=== PATIENT | male | born 1965 | race Caucasian/White ===

== ENCOUNTER 2018-11-14 19:58 | Inpatient (IN) | payer OTHER ==
[~2018-11-14] VITALS: Ht 165.1 cm; Wt 87.5 kg
[2018-11-14 20:07] VITALS: Ht 165.1 cm; Wt 87.5 kg
[2018-11-14 21:28] LABS: BASOPHIL % 0.9 % (0-2); PLATELET COUNT 224 x10^3mcL (130-400); RED CELL DISTRIBUTION WIDTH 13.3 % (11.5-14.5)
[2018-11-14 21:35] LABS: CALCIUM 8.7 mg/dL (8.5-10.1); CARBON DIOXIDE 27.1 mmol/L (21-32); CHLORIDE SERUM 103 mmol/L (98-107); CREATININE SERUM 0.9 mg/dL (0.7-1.3); GFR1 > 60 mL/min; GLUCOSE SERUM 133 mg/dL (74-106); POTASSIUM SERUM 3.7 mmol/L (3.5-5.1); SODIUM SERUM 139 mmol/L (136-145)
[2018-11-14 21:41] LABS: ALBUMIN 3.6 g/dL (3.4-5.0); ALKALINE PHOSPHATASE 116 U/L (46-116); ALT/SGPT 48 U/L (16-63); AST/SGOT 29 U/L (15-37); BILIRUBIN TOTAL 0.23 mg/dL (0.20-1.00); CHOLESTEROL 220 mg/dL (<200); CHOLESTEROL/HDL RATIO 6.1; HDL CHOLESTEROL 36 mg/dL (40-60); TOTAL PROTEIN, SERUM 7.5 g/dL (6.4-8.2); TRIGLYCERIDES 270 mg/dL (<150)
[2018-11-15 03:13] VITALS: BP 118/70
[2018-11-15 03:13] LABS: MAGNESIUM 2.1 mg/dL (1.8-2.4)
[2018-11-15 03:48] LABS: T3 TOTAL 1.31 ng/mL
[2018-11-15 07:33] LABS: CALCIUM 8.3 mg/dL (8.5-10.1); CARBON DIOXIDE 26.1 mmol/L (21-32); CHLORIDE SERUM 102 mmol/L (98-107); CREATININE SERUM 0.8 mg/dL (0.7-1.3); GFR1 > 60 mL/min; GLUCOSE SERUM 145 mg/dL (74-106); MAGNESIUM 2.2 mg/dL (1.8-2.4); PHOSPHOROUS 2.4 mg/dL (2.5-4.9); POTASSIUM SERUM 4.2 mmol/L (3.5-5.1); SODIUM SERUM 136 mmol/L (136-145)
[2018-11-15 07:47] LABS: BASOPHIL % 0.5 % (0-2); PLATELET COUNT 222 x10^3mcL (130-400); RED CELL DISTRIBUTION WIDTH 13.3 % (11.5-14.5)
[2018-11-15 07:49] VITALS: BP 123/90
[2018-11-15 07:56] LABS: FREE T4 0.93 ng/dL (0.76-1.46); T4(THYROXINE) 6.2 ug/dL (4.7-13.3)
[2018-11-15 12:24] VITALS: BP 121/73
[2018-11-15 16:25] VITALS: BP 121/66
[2018-11-15 16:29] LABS: microscopic required? NO
[2018-11-15 16:40] LABS: urine erythrocyte NEGATIVE (NEGATIVE)
[2018-11-15 16:54] LABS: AMPHETAMINE QUAL UR NONE DETECTED (See below)
[2018-11-15 20:49] VITALS: BP 107/71
[2018-11-16 05:27] VITALS: BP 135/84
[2018-11-16 07:21] LABS: BASOPHIL % 0.4 % (0-2); CARBON DIOXIDE 25.7 mmol/L (21-32); CHLORIDE SERUM 102 mmol/L (98-107); CREATININE SERUM 0.8 mg/dL (0.7-1.3); GFR1 > 60 mL/min; GLUCOSE SERUM 126 mg/dL (74-106); MAGNESIUM 2.2 mg/dL (1.8-2.4); PHOSPHOROUS 2.7 mg/dL (2.5-4.9); PLATELET COUNT 214 x10^3mcL (130-400); POTASSIUM SERUM 3.7 mmol/L (3.5-5.1); RED CELL DISTRIBUTION WIDTH 13.7 % (11.5-14.5); SODIUM SERUM 138 mmol/L (136-145)
[2018-11-16 09:04] VITALS: BP 152/87
[2018-11-16 12:13] VITALS: BP 96/54
[2018-11-16 12:16] VITALS: BP 130/71
[2018-11-16] MEDS ORDERED: LIPITOR80 MG PO (13:05)
[2018-11-16] MEDS ORDERED: ASP325 PO (13:06)
[2018-11-16 13:09] VITALS: BP 152/87
== END 2018-11-16 14:14 | disposition home or self-care (01) | DRG 69 ==
LOC: ED 19:58 → DU 11-15 00:34
PROVIDERS: Emergency Medicine; ADMIT Internal Medicine
DX: G45.9 Transient cerebral ischemic attack, unspecified (principal); I69.351 Hemiplegia and hemiparesis following cerebral infarction affecting right dominant side; G51.0 Bell's palsy; E78.00 Pure hypercholesterolemia, unspecified; I10 Essential (primary) hypertension; E78.5 Hyperlipidemia, unspecified
CPT/HCPCS: 83880; 84439; 90658; 97116-GP; 97530-GP; J7030; J8540

== ENCOUNTER 2020-03-02 08:55 | Emergency (ER) | payer OTHER ==
[~2020-03-02] VITALS: Ht 170.2 cm; Wt 97.5 kg
[~2020-03-02 08:55] MED LIST: ASP325 PO; LIPITOR80 MG PO
[2020-03-02 08:59] VITALS: Ht 170.2 cm; Wt 97.5 kg
[2020-03-02 11:20] VITALS: BP 143/87
== END 2020-03-02 11:20 | disposition home or self-care (01) ==
LOC: ED 08:55
DX: S00.81XA Abrasion of other part of head, initial encounter (principal); F10.10 Alcohol abuse, uncomplicated; I10 Essential (primary) hypertension; Z86.73 Personal history of transient ischemic attack (TIA), and cerebral infarction without residual deficits; W18.39XA Other fall on same level, initial encounter; Y93.89 Activity, other specified; Y92.89 Other specified places as the place of occurrence of the external cause; Y99.8 Other external cause status
CPT/HCPCS: 90715

== ENCOUNTER 2020-03-03 02:28 | Emergency (ER) | payer OTHER ==
[~2020-03-03] VITALS: Ht 165.1 cm; Wt 98.9 kg
[2020-03-03 02:36] VITALS: Ht 165.1 cm; Wt 98.9 kg
[2020-03-03 03:26] VITALS: BP 161/95
== END 2020-03-03 03:26 | disposition home or self-care (01) ==
LOC: ED 02:28
DX: F07.81 Postconcussional syndrome (principal); R51 Headache; Z87.898 Personal history of other specified conditions; W18.30XA Fall on same level, unspecified, initial encounter; Y93.89 Activity, other specified; Y92.89 Other specified places as the place of occurrence of the external cause; Y99.8 Other external cause status
CPT/HCPCS: J1885

== ENCOUNTER 2020-09-24 19:37 | Emergency (ER) | payer OTHER ==
[~2020-09-24] VITALS: Ht 165.1 cm; Wt 99.8 kg
[~2020-09-24 19:37] MED LIST changes: +LEXAPRO10 MG PO; +ZESTRIL5 MG PO
[2020-09-24 19:40] VITALS: Ht 165.1 cm; Wt 99.8 kg
[2020-09-24 23:24] VITALS: BP 171/98
== END 2020-09-24 23:24 | disposition home or self-care (01) ==
LOC: ED 19:37
DX: F10.20 Alcohol dependence, uncomplicated (principal); I10 Essential (primary) hypertension